=== PATIENT | female | born 1990 | race Caucasian/White ===

== ENCOUNTER 2024-06-30 09:47 | Inpatient (IN) | payer SELFPAY ==
[~2024-06-30 09:47] MED LIST: Acetaminophen 500 MG TAB PO PRN; Carboprost 250 MCG/ML AMP IM PRN; Diphenoxylate HCl/Atropine Tablet PO PRN; Ibuprofen 800 MG TAB PO PRN; Lactated Ringer's 1,000 ML IV SCH; Lactated Ringer's 500 ML IV PRN; Lidocaine 1% (PF) 30 ML VIAL SC PRN; Methylergonovine 0.2 MG/ML VIAL IM PRN; Misoprostol 200 MCG TAB RC PRN; Moisturizing Cream (Eucerin) 113 GM JAR TOP PRN; Naloxone HCl 0.4 mg/ml Vial IV PRN; Oxytocin 30 units/NS 500 ML 500 ML IV SCH; Oxytocin 30 units/NS 500 ML 500 ML ONE; Penicillin G Potassium 5 MILL.UNITS VIAL ONE; Penicillin G Potassium 5 MILL.UNITS in Sodium Chloride 0.9% 100 ML IVPB SCH; ePHEDrine/0.9% NaCl/PF SYRINGE 50 mg/10 ml SLOW IVP PRN; fentaNYL/Ropivacaine Epidural 100 ML ONE; fentaNYL/Ropivacaine Epidural 100 ML in Premix 1 BAG EPIDURAL SCH
[2024-06-30] MEDS ORDERED: Lidocaine 1% (PF) 30 ML VIAL ONE (09:50)
[2024-06-30] MEDS ORDERED: Tranexamic Acid 1,000 MG/10 ML VIAL IVP SCH (10:00)
[2024-06-30] MEDS ORDERED: fentaNYL 50 mcg/mL 1 mL Vial SLOW IVP SCH (10:00)
[2024-06-30] MEDS ORDERED: Tranexamic Acid 1,000 MG/10 ML VIAL ONE (10:15)
[2024-06-30] MEDS ORDERED: fentaNYL 50 mcg/mL 1 mL Vial ONE (10:24)
[2024-06-30] MEDS ORDERED: Phytonadione Neonatal 1 MG/0.5 ML AMP ONE (10:44)
[2024-06-30] MEDS ORDERED: Erythromycin Base 0.5% Oint 1 GM TUBE ONE (10:44)
[2024-06-30] MEDS ORDERED: Misoprostol 200 MCG TAB VAG PRN (11:07)
[2024-06-30] MEDS ORDERED: Methylergonovine 0.2 MG/ML VIAL IM PRN (11:07)
[2024-06-30] MEDS ORDERED: hydrALAZINE 20 MG/ML VIAL SLOW IVP PRN (11:07)
[2024-06-30] MEDS ORDERED: Milk Of Magnesia 30 ML UDCUP PO PRN (11:07)
[2024-06-30] MEDS ORDERED: Lanolin Ointment 7 GM TUBE TOP PRN (11:07)
[2024-06-30] MEDS ORDERED: Oxytocin 30 units/NS 500 ML 1,000 ML IV SCH (11:07)
[2024-06-30] MEDS ORDERED: Benzocaine-Menthol 82.5 ML CAN TOP PRN (11:07)
[2024-06-30] MEDS ORDERED: Preparation H Ointment 28 GM TUBE PR PRN (11:07)
[2024-06-30] MEDS ORDERED: Boostrix 0.5 ML (Tdap) VIAL (>/=7 yrs of age) IM SCH (11:07)
[2024-06-30] MEDS ORDERED: Bisacodyl 10 MG SUPP PR PRN (11:07)
[2024-06-30] MEDS ORDERED: Bupivacaine PF 0.5% 30 ML VIAL ONE (12:00)
[2024-06-30] MEDS ORDERED: Bupivacaine/Epinephrine 0.25% 30 ML VIAL ONE (12:00)
[2024-06-30] MEDS ORDERED: Penicillin G 2.5 MILL.units 2.5 MILL.UNITS in Premix 1 BAG IVPB SCH (13:30)
[2024-06-30] MEDS ORDERED: Ibuprofen 800 MG TAB PO SCH (14:00)
[2024-06-30] MEDS ORDERED: Ferrous Sulfate 325 MG TAB PO SCH (17:00)
[2024-06-30] MEDS ORDERED: Docusate 100 MG CAP PO SCH (21:00)
[2024-06-30] MEDS ORDERED: Docusate 100 MG CAP ONE (21:19)
[2024-06-30] MEDS ORDERED: Ibuprofen 800 MG TAB ONE (21:20)
[2024-06-30] MEDS ORDERED: Oxytocin 30 units/NS 500 ML 500 ML IVPB SCH (21:45)
[2024-06-30] MEDS ORDERED: Acetaminophen 325 MG TAB PO PRN (22:06)
[2024-06-30] MEDS ORDERED: diphenhydrAMINE 50 MG/ML VIAL IVP PRN (22:06)
[2024-06-30] MEDS ORDERED: Ondansetron PF 4 MG/2 ML Vial IVP PRN (22:06)
[2024-06-30] MEDS ORDERED: Promethazine HCl 25 MG/ML VIAL IM PRN (22:06)
[2024-06-30] MEDS ORDERED: Naloxone HCl 0.4 mg/ml Vial IV PRN (22:06)
[2024-06-30 22:34] LABS: HBsAg Index 0.16 S/CO (0-0.99); HIV (1/2) Antibody/Antigen NonReactive (NonReactive); HIV 1/2 INDEX 0.09 S/CO (<1.00); Hep B Surf Ag - L&D NonReactive S/CO (NonReactive)
[2024-06-30 22:35] LABS: Syphilis Antibody Nonreactive (Nonreactive); Syphilis Antibody Index 0.03 S/CO (<1.00 Non-Reactive)
[2024-06-30 23:32] LABS: Hemoglobin 12.9 g/dL (12.0-15.5); Mean Corpuscular HGB CONC 34.9 g/dL (32.0-36.0); Mean Corpuscular Hemoglobin 33.2 pg (27.0-33.0); Mean Corpuscular Volume 95.4 fL (81.6-98.3); Mean Platelet Volume 11.1 fL (7.4-10.4); Platelet Count 241 10x3/uL (150-450); RBC Distribution Width 13.5 % (11.5-14.5); Red Blood Cell (RBC) Count 3.88 10x6/uL (3.90-5.03); White Blood Cell (WBC) Count 27.3 10x3/uL (3.5-10.5)
[2024-06-30 23:51] LABS: Hematocrit 36.5 % (34.9-44.5); Hemoglobin 12.7 g/dL (12.0-15.5); Mean Corpuscular HGB CONC 34.8 g/dL (32.0-36.0); Mean Corpuscular Hemoglobin 32.9 pg (27.0-33.0); Mean Corpuscular Volume 94.6 fL (81.6-98.3); Mean Platelet Volume 10.9 fL (7.4-10.4); Platelet Count 207 10x3/uL (150-450); RBC Distribution Width 13.4 % (11.5-14.5); Red Blood Cell (RBC) Count 3.86 10x6/uL (3.90-5.03)
[2024-07-01 00:08] LABS: D-Dimer Test 1.08 mcg/mL (0.19-0.50); PTT 29.4 sec (22.0-33.0); Prothrombin Time 10.9 sec (9.5-12.1)
[2024-07-01 07:36] LABS: Hematocrit 31.9 % (34.9-44.5); Hemoglobin 11.2 g/dL (12.0-15.5); Mean Corpuscular HGB CONC 35.1 g/dL (32.0-36.0); Mean Corpuscular Hemoglobin 32.8 pg (27.0-33.0); Mean Corpuscular Volume 93.5 fL (81.6-98.3); Mean Platelet Volume 10.8 fL (7.4-10.4); Platelet Count 211 10x3/uL (150-450); RBC Distribution Width 13.7 % (11.5-14.5); Red Blood Cell (RBC) Count 3.41 10x6/uL (3.90-5.03); White Blood Cell (WBC) Count 12.9 10x3/uL (3.5-10.5)
== END 2024-07-01 13:30 | disposition home or self-care (01) | DRG 806 ==
LOC: CSHLD 09:47 → CSHPP 13:00
PROVIDERS: ADMIT Obstetrics & Gynecology; ATTEND Obstetrics & Gynecology
PROC: 10E0XZZ Delivery of Products of Conception, External Approach (ICD-10-PCS; principal; 2024-06-30)
PROC: 0HQ9XZZ Repair Perineum Skin, External Approach (ICD-10-PCS; 2024-06-30)
PROC: 0UQMXZZ Repair Vulva, External Approach (ICD-10-PCS; 2024-06-30)
DX: O34.211 Maternal care for low transverse scar from previous cesarean delivery (principal); O72.1 Other immediate postpartum hemorrhage; Z37.0 Single live birth; O98.32 Other infections with a predominantly sexual mode of transmission complicating childbirth; B00.9 Herpesviral infection, unspecified; O70.1 Second degree perineal laceration during delivery; Z3A.39 39 weeks gestation of pregnancy; O99.334 Smoking (tobacco) complicating childbirth; O99.52 Diseases of the respiratory system complicating childbirth; J45.909 Unspecified asthma, uncomplicated
CPT/HCPCS: 36415; 51702; 85027; 85049; 85300; 85362; 85384; 85610; 85730; 86780; 86850; 86900; 86901; 87340; 87389; 88307; 99285; J0665